=== PATIENT | male | born 1950 | race Caucasian/White ===

== ENCOUNTER 2017-12-05 13:06 | Emergency (ER) | payer OTHER, MEDICARE ==
--- NOTE | 2017-12-05 13:20 | EDPHY ---
H & P Stated Complaint: FELL CLIMBING ON RAFT IN TRUCK YESTERDAY NO LOC NO NECK PAIN/ MILD FIERRO Time Seen by Provider: 12/05/17 13:19 HPI/ROS: HPI: This is a 67-year-old male who presents with Chief Complaint: FELL CLIMBING ON RAFT IN TRUCK YESTERDAY NO LOC NO NECK PAIN/ MILD FIERRO Location: Bilateral pentecostalism, neck Quality: Injury Duration: Yesterday afternoon Signs and Symptoms: no LOC, no nausea, no vomiting, no photophobia, no noise sensitivity, no neck stiffness, no ear pain, no tinnitus, no weakness, no radiation, no swelling Timing: Acute, intermittent Severity: Mild Context: Patient is generally healthy takes baby aspirin daily presents with complaints of bilateral pentecostalism discomfort described as dull and aching if he moves his head from right to left but does not occur he moves his head up and down. He reports that this started after he accidentally fell while climbing up on the raft in his truck yesterday. He was approximately 5-7 feet off the ground. He reports that he rolled onto the ground but is sure that he may have hit his head. Denies any contusion/laceration/amnesia/LOC/nausea/vomiting. Patient reports that he was ambulatory at the scene. He became worried as his mild headache continued from yesterday into today. He describes his headache as mild, throbbing and nonradiating in nature. Worsened with moving his head side to side. Patient denies any numbness or tingling in his fingers. Modifying Factors: None Comment: ROS: see HPI Constitutional: No fever, no chills, no weight loss Eyes: No blurred vision Respiratory: No shortness of breath, no cough Cardiovascular: No chest pain, no palpitations Gastrointestinal: No nausea, no vomiting, no diarrhea, no hematemesis, no blood in stool Genitourinary: No dysuria, no blood in urine Extremities: No myalgias, no edema Neurologic: No weakness, no numbness Skin: No rashes, no petechiae Hematologic: No bruising, no bleeding MEDICAL/SURGICAL/SOCIAL HISTORY: Medical history: Generally healthy. Does not take any regular medications. Surgical history: Denies Social history: Never smoked. Family history noncontributory. CONSTITUTIONAL: Physically fit elderly white male who appears younger than stated age, awake and alert, no obvious distress HEENT: Atraumatic and normocephalic. NECK: supple, no midline tenderness, flexion 45 degrees, extension 45 degrees, right and left lateral flexion 45 degrees. No meningismus. Cardiovascular: Normal S1/S2, regular rate, regular rhythm, without murmur rub or gallop. PULMONARY/CHEST: Symmetrical and nontender. no crepitus. Clear to auscultation bilaterally. Good air movement. No accessory muscle usage. ABDOMEN: Soft, nondistended, nontender, no ecchymosis. PELVIC: no pain with rocking; bilateral hips flexion 125 degrees, extension 30 degrees, with no pain internal rotation and no pain external rotation. BACK: No midline tenderness, no paraspinous spasm, deep tendon reflexes 2/2, no pain with straight leg raise, No foot drop. Achilles reflexes are equal bilaterally. Able to walk on heels and toes without difficulty. EXTREMITIES: 2/2 pulses, strength 5/5, DIP/PIP/MCP flexion/extension intact with good light touch sensation. no deformities, no clubbing, no cyanosis or edema. NEUROLOGICAL: no focal neuro deficits. GCS 15. Light touch sensation intact. SKIN: Warm and dry, no erythema. no rash. Good capillary refill. Source: Patient Exam Limitations: No limitations - Personal History Current Tetanus Diphtheria and Acellular Pertussis (TDAP): Unsure - Medical/Surgical History Hx Asthma: No Hx Chronic Respiratory Disease: No Hx Diabetes: No Hx Cardiac Disease: No Hx Renal Disease: No Hx Cirrhosis: No Hx Alcoholism: No Hx HIV/AIDS: No Hx Splenectomy or Spleen Trauma: No Other PMH: DENIES - Social History Smoking Status: Never smoked Constitutional: Initial Vital Signs Temperature (C) 36.7 C 12/05/17 13:11 Heart Rate 77 12/05/17 13:11 Respiratory Rate 18 12/05/17 13:11 Blood Pressure 172/95 H 12/05/17 13:11 O2 Sat (%) 97 12/05/17 13:11 O2 Delivery Mode Room Air Allergies/Adverse Reactions: No Known Allergies Allergy (Unverified 12/05/17 13:11) Home Medications: Medication Instructions Recorded NK [No Known Home Meds] 12/05/17 Medical Decision Making - Diagnostics Imaging Results: Imaging Impressions Cervical Spine CT 12/05/17 13:26 Impression: 1. No definite fracture. 2. Moderate cervical spondylosis, worse at C4-C5 and C5-C6 resulting in mild to moderate central canal stenosis, worse at C5-C6, and variable bilateral neural foraminal stenosis, worse on the right at C4-C5, right at C5-C6, as described above. 3. If there is persistent pain or neurological deficit, recommend MR cervical spine and consider flexion and extension views, if clinically indicated. Findings and recommendations discussed with Emergency Department physician, Phuong Hernandez PA-C at 1400 hour, 12/05/2017. Final report concurs with initial preliminary interpretation. Head CT 12/05/17 13:26 Impression: 1. Mild cerebral atrophy. 2. No intraparenchymal hemorrhage or epidural/subdural hematoma. 3. No skull fracture. Findings and recommendations discussed with Emergency Department physician, Phuong Hernandez at 1400 hour, 12/05/2017. Final report concurs with initial preliminary interpretation. ED Course/Re-evaluation: Head CT required as age greater than 65. [address] required as the age greater than 65 and fall greater than 3 feet. Fall was accidental in nature. No signs of neurovascular compromise/tenting of skin/compartment syndrome/ extremities and joints examined above and below area of concern and are neurovascularly intact. 1400: Called by Dr. Sotelo, radiologist, who advised that head CT scan shows mild atrophy but no signs of hemorrhage, skull fracture. CT cervical scan shows moderate multilevel spondylosis degenerative changes but no acute fracture/disc herniation. This patient was seen under the supervision of my secondary supervising physician. I evaluated care for this patient independently. Discussed this patient with Dr. Longoria who did not see the patient. Differential Diagnosis: Head injury including but not limited to concussion, skull fracture, intraparenchymal contusion, subarachnoid, subdural and epidural hematoma. Departure - Departure Disposition: Home, Routine, Self-Care Clinical Impression: Degenerative disc disease, cervical Accidental fall Qualifiers: Encounter type: initial encounter Qualified Code(s): W19.XXXA - Unspecified fall, initial encounter Closed head injury without loss of consciousness Qualifiers: Encounter type: initial encounter Qualified Code(s): S09.90XA - Unspecified injury of head, initial encounter Condition: Good Instructions: Concussion (ED), Degenerative Disc Disease (ED) Additional Instructions: Please take Tylenol 650 mg every 4 hr and/or ibuprofen 600 mg every 6-8 hours as needed for pain, headache. Please observe concussion precautions as you did sustain a closed head injury. If at any point, you feel that your concussion symptoms are not improving; follow-up with Dr. Packer in the [facility]. Return to the ER immediately if you have progressive headaches, neurologic deficits, gait abnormality, visual disturbance, slurred speech, or any other symptom that concerns you. Referrals: Arik Blackwell MD [Primary Care Provider] - As per Instructions Merary Packer MD [Medical Doctor] - As per Instructions
[2017-12-05 14:17] VITALS: BP 155/78
== END 2017-12-05 14:18 | disposition home or self-care (01) ==
DX: S09.90XA Unspecified injury of head, initial encounter (principal); M50.30 Other cervical disc degeneration, unspecified cervical region; W17.89XA Other fall from one level to another, initial encounter; Y99.8 Other external cause status; Y93.39 Activity, other involving climbing, rappelling and jumping off